=== PATIENT | male | born 1985 | race African-American/Black ===

== ENCOUNTER 2019-07-02 13:58 | Emergency (ER) | payer OTHER ==
[~2019-07-02] VITALS: Ht 185.4 cm; Wt 110.2 kg
[~2019-07-02 13:58] MED LIST: BACTRIM DS TAB1 EACH PO; CYCLOBENZAPRINE5 MG PO; HYDROCODONE-AP1 EAC6 PO; IBUPROFEN 800800 M1 PO; NORCO 5-325 TA1 EACH PO; NORVASC5 MG PO; TRAMADOL 50 MG50 MG PO
[2019-07-02 14:55] LABS: ABSOLUTE NEUTROPHILS 4.2 thou/uL (1.4-8.2); BASOPHILS 0.8 % (0.0-2.0); EOSINOPHILS 3.3 % (0.0-3.0); HEMATOCRIT 40.2 % (42.0-52.0); HEMOGLOBIN 13.6 gm/dL (14.0-18.0); MCHC 33.7 g/dL (28.0-37.0); MCV 92.1 fL (80.0-100.0); MONOCYTES 9.9 % (1.0-8.0); PLATELET COUNT 218 thou/uL (150-400); RBC 4.37 mil/uL (4.50-6.00); RDW 12.8 % (10.5-14.5); WBC 6.9 thou/uL (4.0-11.0)
[2019-07-02 15:08] LABS: POTASSIUM 3.9 mmol/L (3.5-5.1)
[2019-07-02 15:13] LABS: ALBUMIN 3.8 g/dL (3.4-5.0); TOTAL BILIRUBIN 0.7 mg/dL (<0.1-1.0); TOTAL PROTEIN 7.6 g/dL (6.4-8.2)
[2019-07-02] MEDS ORDERED: MOBIC7.5 MG PO (16:07)
[2019-07-02] MEDS ORDERED: MUPIROCIN1 GM TOP (16:49)
[2019-07-02 16:53] VITALS: BP 129/74
--- NOTE | 2019-07-03 07:59 | EKG ---
[place] [address] [facility] [place] [address] ELECTROCARDIOGRAM REPORT Name: LAZARO PECK [id number] Admission: 07/02/19 Attend Phys: Discharge: 07/02/19 Date of : [birth year] Report #: [id number] THIS REPORT FOR: //name// [facility] ED Test Date: 2019-07-02 Test Time: 14:02:20 Pat Name: LAZARO PECK Department: Room: Gender: [employer]: JENNIFER : 1985 Requested By: Mera Carter Order Number: [id number] MD: Camilo Aquino Measurements Intervals [place] Rate: 78 P: -5 OK: 159 QRS: 6 QRSD: 86 T: 13 QT: 370 QTc: 422 Interpretive Statements Sinus rhythm Poor R wave progression Compared to ECG 10/20/2015 09:02:13 No significant change was found Electronically Signed On 07-03-2019 7:59:04 CDT by Camilo Aquino [email or web address] <ELECTRONICALLY SIGNED> By: Camilo Aquino MD, [facility] 07/03/19 0759 1402 140 Camilo Aquino MD, FACC /EPI
== END 2019-07-02 16:55 | disposition home or self-care (01) ==
LOC: ER 13:58
PROVIDERS: Nurse Practitioner Family
DX: R07.89 Other chest pain (principal); L01.00 Impetigo, unspecified; I10 Essential (primary) hypertension; Z90.89 Acquired absence of other organs; Z88.6 Allergy status to analgesic agent; Z88.8 Allergy status to other drugs, medicaments and biological substances

== ENCOUNTER 2020-06-18 17:20 | Emergency (ER) | payer OTHER ==
[~2020-06-18] VITALS: Ht 185.4 cm; Wt 106.6 kg
[~2020-06-18 17:20] MED LIST changes: +MOBIC7.5 MG PO; +MUPIROCIN1 GM TOP
[2020-06-18] MEDS ORDERED: NORVASC10 MG PO (17:40)
[2020-06-18] MEDS ORDERED: ZOCOR 10 MG TAB10 MG PO (17:41)
[2020-06-18 18:06] LABS: HEMATOCRIT 38.1 % (42.0-52.0); HEMOGLOBIN 13.5 gm/dL (14.0-18.0); MCH 31.3 pg (26.0-34.0); MCHC 35.5 g/dL (28.0-37.0); MCV 88.2 fL (80.0-100.0); RBC 4.32 mil/uL (4.50-6.00); RDW 12.2 % (10.5-14.5); WBC 4.2 thou/uL (4.0-11.0)
[2020-06-18 18:16] LABS: ANION GAP 9 mmol/L (7-16); BUN 10 mg/dL (7-18); CALCIUM 8.9 mg/dL (8.5-10.1); CHLORIDE 101 mmol/L (98-107); CO2 27 mmol/L (21-32); CREATININE 0.9 mg/dL (0.7-1.3); GLUCOSE 106 mg/dL (74-106); SODIUM 137 mmol/L (136-145)
[2020-06-18 18:24] LABS: TROPONIN-I <0.06 ng/mL (<0.06)
[2020-06-18] MEDS ORDERED: PROMETHAZINE-C473 ML PO (20:27)
[2020-06-18] MEDS ORDERED: ZPAK PO (20:27)
[2020-06-18] MEDS ORDERED: ONDANSETRON HCL4 M2 PO (20:29)
[2020-06-18 20:35] VITALS: BP 120/76
--- NOTE | 2020-06-19 07:51 | EKG ---
[facility] [place] [address] ELECTROCARDIOGRAM REPORT Name: LAZARO PECK Room #: [facility]#: [id number] Admission: 06/18/20 Attend Phys: Discharge: 06/18/20 Date of : [birth year] Report #: [id number] THIS REPORT FOR: cc: ARNOLDO [place] family physician/PCP ARNOLDO - [place] family physician/PCP Camilo Aquino MD [facility] THIS REPORT FOR: //name// [facility] ED Test Date: 2020-06-18 Test Time: 17:25:32 Pat Name: LAZARO PECK Department: Room: Gender: Chaplain Resident: [facility] : 1985 Requested By: Santiago Viera Order Number: [id number] MD: Camilo Aquino Measurements Intervals [place] Rate: 80 P: 13 PA: 163 QRS: 18 QRSD: 76 T: 26 QT: 353 QTc: 408 Interpretive Statements Sinus rhythm Poor R wave progression Compared to ECG 07/02/2019 14:02:20 No significant change was found Electronically Signed On 06-19-2020 7:51:34 CDT by Camilo Aquino [email or web address] <ELECTRONICALLY SIGNED> By: Camilo Aquino MD, FACC 06/19/20 0751 1725 1725 Camilo Aquino MD, [facility] /EPI
== END 2020-06-18 20:45 | disposition home or self-care (01) ==
LOC: ER 17:20
PROVIDERS: Physician Assistant
DX: J18.9 Pneumonia, unspecified organism (principal); R10.9 Unspecified abdominal pain; Z20.828 Contact with and (suspected) exposure to other viral communicable diseases; I10 Essential (primary) hypertension; Z79.899 Other long term (current) drug therapy; Z88.8 Allergy status to other drugs, medicaments and biological substances

== ENCOUNTER 2021-05-06 10:06 | Emergency (ER) | payer OTHER ==
[~2021-05-06] VITALS: Ht 185.4 cm; Wt 106.6 kg
[~2021-05-06 10:06] MED LIST changes: +NORVASC10 MG PO; +ONDANSETRON HCL4 M2 PO; +PROMETHAZINE-C473 ML PO; +ZOCOR 10 MG TAB10 MG PO; +ZPAK PO
[2021-05-06 10:09] VITALS: BP 157/92
== END 2021-05-06 12:18 | disposition home or self-care (01) ==
LOC: ER 10:06
DX: R51.9 Headache, unspecified (principal); R11.0 Nausea; I10 Essential (primary) hypertension; Z90.89 Acquired absence of other organs; Z88.1 Allergy status to other antibiotic agents

== ENCOUNTER 2021-06-29 20:00 | Emergency (ER) | payer OTHER ==
[~2021-06-29] VITALS: Ht 185.4 cm; Wt 108.9 kg
[2021-06-29] MEDS ORDERED: MOBIC7.5 MG PO (20:37)
[2021-06-29] MEDS ORDERED: AUGMENTIN 875-1 EACH PO (20:37)
[2021-06-29] MEDS ORDERED: PROTONIX 20 MG20 M1 PO (21:18)
[2021-06-29 21:40] VITALS: BP 150/96
--- NOTE | 2021-06-30 07:30 | EKG ---
[place] [address] [facility] [employer] ([employer]) [place] [address] ELECTROCARDIOGRAM REPORT Name: LAZARO PECK [facility] [id number] Admission: 06/29/21 Attend Phys: Discharge: 06/29/21 Date of : [birth year] Report #: [id number] [facility] ED Test Date: 2021-06-29 Test Time: 20:06:56 Pat Name: LAZARO PECK Department: Room: Gender: Telehealth Case Manager: MARIANA : 1985 Requested By: Chalino Giron Order Number: [id number] MD: rTistan Bradshaw Measurements Intervals [place] Rate: 74 P: -5 ID: 173 QRS: -1 QRSD: 83 T: 6 QT: 370 QTc: 411 Interpretive Statements Sinus rhythm Probable anterior infarct, old Compared to ECG 06/18/2020 17:25:32 Myocardial infarct finding now present Poor R-wave progression no longer present Electronically Signed On 06-30-2021 7:30:22 CDT by Tristan Bradshaw [email or web address] <ELECTRONICALLY SIGNED> By: Tristan Bradshaw MD, [facility] 06/30/21729 05 05 Tristan Bradshaw MD, FACC /EPI
== END 2021-06-29 21:30 | disposition home or self-care (01) ==
LOC: ER 20:00
DX: R51.9 Headache, unspecified (principal); M94.0 Chondrocostal junction syndrome [Tietze]; R05.9 Cough, unspecified; J02.9 Acute pharyngitis, unspecified; I10 Essential (primary) hypertension; Z86.16 Personal history of COVID-19; Z90.89 Acquired absence of other organs; Z98.890 Other specified postprocedural states; Z79.899 Other long term (current) drug therapy; Z88.8 Allergy status to other drugs, medicaments and biological substances